=== PATIENT | male | born 1985 | race Caucasian/White ===

== ENCOUNTER 2018-10-01 13:58 | Emergency (ER) | payer OTHER ==
[~2018-10-01] VITALS: Ht 188 cm; Wt 90.7 kg
[2018-10-01 14:30] VITALS: BP_SYST 140
[2018-10-01] MEDS ORDERED: KETOROLAC TROMETHAMINE 60 MG/2 ML VIAL IM ONE (15:15)
[2018-10-01 16:02] VITALS: BP_SYST 134
== END 2018-10-01 16:02 | disposition home or self-care (01) ==
LOC: SED 13:58
DX: S29.012A Strain of muscle and tendon of back wall of thorax, initial encounter (principal); R03.0 Elevated blood-pressure reading, without diagnosis of hypertension; X58.XXXA Exposure to other specified factors, initial encounter; Y93.89 Activity, other specified; Y92.89 Other specified places as the place of occurrence of the external cause; Y99.8 Other external cause status
CPT/HCPCS: 96372; 99283; J1885